=== PATIENT | female | born 1975 | race Caucasian/White ===

== ENCOUNTER 2016-11-29 09:58 | Emergency (ER) | payer OTHER ==
[2016-11-29 10:23] VITALS: BP 101/56; PULSE 50; TEMP 98; BMI 26.9
[2016-11-29] MEDS ORDERED: KETOROLAC TROMETHAMINE 60 MG/2 ML VIAL IM ONE (11:33)
[2016-11-29] MEDS ORDERED: KETOROLAC TROMETHAMINE 60 MG/2 ML VIAL ONE (11:37)
--- NOTE | 2016-11-29 12:36 | PDOC ---
History of Present Illness - General Chief Complaint: Cold Symptoms Stated Complaint: BACK PAIN Time Seen by Provider: 11/29/16 11:17 History Source: Patient Exam Limitations: Language Barrier - History of Present Illness Initial Comments: 11/29/16 12:30 used drop wire hanger phone 11/29/16 12:30 CC loss of voice x 2 days; post cough x 5 days; also some mid back pain Timing/Duration: reports: yesterday Severity: reports: mild Possible Cause: No: no prior episodes Modifying Factors: improves with: activity Associated Symptoms: reports: nasal congestion, nasal drainage, other (loss of voice). denies: chest pain/soreness, fever/chills, sore throat, wheezing Past History - Past Medical History Allergies/Adverse Reactions: Allergies Allergy/AdvReac Type Severity Reaction Status Date / Time No Known Allergies Allergy Verified 11/29/16 10:19 Home Medications: Ambulatory Orders NK [No Known Home Medication] 11/29/16 Other medical history: none - Psycho/Social/Smoking Cessation Hx Anxiety: No Suicidal Ideation: No Smoking History: Never smoked Have you smoked in the past 12 months: No Information on smoking cessation initiated: No Hx Alcohol Use: No Drug/Substance Use Hx: No Substance Use Type: None Review of Systems - Review of Systems Constitutional: No: Symptoms Reported, Chills, Fever, Malaise HEENTM: Yes: Nose Pain, Nose Congestion Respiratory: Yes: Cough. No: Symptoms reported Cardiac (ROS): No: Symptoms Reported ABD/GI: No: Symptoms Reported, Constipated, Diarrhea Musculoskeletal: Yes: Back Pain (mid center back pain post coughing) *Physical Exam - Vital Signs Last Vital Signs Temp Pulse Resp BP Pulse Ox 98.0 F 50 L 18 101/56 100 11/29/16 10:21 11/29/16 10:21 11/29/16 10:21 11/29/16 10:21 11/29/16 10:21 - Physical Exam General Appearance: Yes: Appropriately Dressed. No: Apparent Distress HEENT: positive: Pharynx Normal, Nasal Congestion, Rhinorrhea. negative: TMs Normal, Sinus Tenderness, TM Bulging, TM Dull, TM Erythema Neck: positive: Normal Thyroid, Supple, Other (post nasal drip). negative: Tender, Rigid, Decreased range of motion, Lymphadenopathy (R), Lymphadenopathy ( L), Rigidity, Tender lateral, Tender midline Respiratory/Chest: positive: Chest Tender, Other (mild tenderness to back). negative: Lungs Clear Cardiovascular: positive: Regular Rhythm, Regular Rate. negative: Murmur ED Treatment Course - ADDITIONAL ORDERS Additional order review: Laboratory Results 11/29/16 11:14 Urine HCG, Qual Negative 11/29/16 11:50 Group A Strep Rapid Antigen - Final Throat - RADIOLOGY Radiology Studies Ordered: Category Date Time Status CHEST PA & LAT [RAD] Stat Radiology 11/29/16 11:34 Completed - Medications Given in the ED: ED Medications Discontinued Medications Generic Name Dose Route Start Last Admin Trade Name Freq PRN Reason Stop Dose Admin Ketorolac Tromethamine 60 mg 11/29/16 11:33 11/29/16 11:58 Toradol Injection - IM 11/29/16 11:34 60 mg ONCE ONE Administration Medical Decision Making - Medical Decision Making 11/29/16 12:36 negative chest, and strep= feeling much better post toradol; told to gargle *DC/Admit/Observation/Transfer Diagnosis at time of Disposition: Laryngitis, Chest wall pain - Discharge Dispostion Disposition: HOME Condition at time of disposition: Stable Admit: No - Referrals Referrals: George Lechuga MD [Staff Physician] - - Patient Instructions Additional Instructions: see dr lechuga if voice remains abnormal 2 weeks; advsondra for pain
== END 2016-11-29 12:49 | disposition home or self-care (01) ==
LOC: JERFT 09:58
PROC: 3E0233Z Introduction of Anti-inflammatory into Muscle, Percutaneous Approach (ICD-10-PCS; principal; 2016-11-29)
DX: J04.0 Acute laryngitis (principal); R07.89 Other chest pain
CPT/HCPCS: 71020-TC; 84703; 87070; 87430; 96372; 99281-25

== ENCOUNTER 2023-02-24 18:33 | Emergency (ER) | payer OTHER ==
[2023-02-24 19:02] VITALS: BP 116/79; PULSE 87; RESP 18; TEMP 99; BMI 28.1
[2023-02-24 19:27] LABS: HCG,QUALITATIVE URINE Negative
[2023-02-24] MEDS ORDERED: KETOROLAC TROMETHAMINE 60 MG/2 ML VIAL IM ONE (19:33)
[2023-02-24] MEDS ORDERED: KETOROLAC TROMETHAMINE 60 MG/2 ML VIAL ONE (19:42)
[2023-02-24] MEDS ORDERED: ACETAMINOPHEN 500 MG TABLET (FP) PO ONE (20:45)
[2023-02-24] MEDS ORDERED: ACETAMINOPHEN 325 MG TABLET (FP) ONE (20:47)
[2023-02-24] MEDS ORDERED: CYCLOBENZAPRINE HCL 10 MG TABLET (FP) PO ONE (21:20)
[2023-02-24] MEDS ORDERED: CYCLOBENZAPRINE HCL 5 MG TABLET ONE (21:21)
== END 2023-02-24 21:29 | disposition home or self-care (01) ==
LOC: FER 18:33
PROC: 3E023GC Introduction of Other Therapeutic Substance into Muscle, Percutaneous Approach (ICD-10-PCS; principal; 2023-02-24)
DX: M54.50 Low back pain, unspecified (principal)
CPT/HCPCS: 81003; 81015; 84703; 99284-25

== ENCOUNTER 2024-02-04 11:10 | Emergency (ER) | payer OTHER ==
[2024-02-04 11:36] VITALS: BP 111/76; PULSE 74; RESP 18; TEMP 98.2; BMI 26.1
[2024-02-04] MEDS ORDERED: ACETAMINOPHEN 325 MG TABLET (FP) ONE (12:03)
[2024-02-04] MEDS: ACETAMINOPHEN 325 MG TABLET (FP) PO ONE (12:06)
[2024-02-04 12:18] LABS: URINE APPEARANCE CLEAR; URINE BILIRUBIN NEGATIVE (NEGATIVE); URINE COLOR YELLOW; URINE GLUCOSE (UA) NEGATIVE (NEGATIVE); URINE KETONE NEGATIVE (NEGATIVE); URINE LEUK ESTERASE NEGATIVE (NEGATIVE); URINE NITRITE NEGATIVE (NEGATIVE); URINE PROTEIN NEGATIVE (NEGATIVE); URINE UROBILINOGEN 0.2 mg/dL (0.2-1.0)
[2024-02-04 12:21] LABS: HCG,QUALITATIVE URINE Negative
== END 2024-02-04 15:00 | disposition home or self-care (01) ==
LOC: JER 11:10
DX: S01.81XA Laceration without foreign body of other part of head, initial encounter (principal); S00.83XA Contusion of other part of head, initial encounter; R06.02 Shortness of breath; R20.0 Anesthesia of skin; W22.8XXA Striking against or struck by other objects, initial encounter
CPT/HCPCS: 70450-TC; 70486-TC; 81003; 84703; 87086; 93005; 93010; 99285-25